=== PATIENT | female | born 1955 | race African-American/Black ===

== ENCOUNTER 2023-09-25 08:56 | Day surgery (SDC) | payer MEDICARE ==
[2023-09-24 13:18] VITALS: BMI 36.5
[2023-09-25] MEDS ORDERED: CEFAZOLIN 2 GM VIAL ONE (10:42)
[2023-09-25] MEDS ORDERED: Bupivacaine PF 0.5% 30 ML VIAL ONE (10:42)
[2023-09-25] MEDS ORDERED: PROPOFOL 20 ML ONE (11:21)
[2023-09-25] MEDS ORDERED: fentaNYL 50 mcg/mL 1 mL Vial ONE ×2 (11:22→12:43)
[2023-09-25] MEDS ORDERED: SUCCINYLCHOLINE/SOD CL,ISO/PF 200 MG/10 ML SYRINGE FS ONE (11:22)
[2023-09-25] MEDS ORDERED: PHENYLEPHRINE-NS 100 MCG/ML 10 ML SYRINGE ONE (12:12)
[2023-09-25] MEDS ORDERED: Lidocaine 2% PF 5 ML VIAL ONE (12:12)
[2023-09-25] MEDS ORDERED: Promethazine HCl 25 MG/ML VIAL ONE (13:51)
== END 2023-09-25 14:35 | disposition home or self-care (01) ==
LOC: CSHSDC 08:56
PROVIDERS: ATTEND Podiatrist Foot & Ankle Surgery
DX: M77.31 Calcaneal spur, right foot (principal); M76.61 Achilles tendinitis, right leg; M89.9 Disorder of bone, unspecified; E78.5 Hyperlipidemia, unspecified; I10 Essential (primary) hypertension; E66.9 Obesity, unspecified; E78.2 Mixed hyperlipidemia; E11.9 Type 2 diabetes mellitus without complications; Z71.89 Other specified counseling; Z79.899 Other long term (current) drug therapy; Z88.5 Allergy status to narcotic agent; Z68.36 Body mass index [BMI] 36.0-36.9, adult; Z79.85 Long-term (current) use of injectable non-insulin antidiabetic drugs
CPT/HCPCS: 28118; 28200; 73620; 93005; C1713; J0665; J2001; J2550; J2704; J3010; 93010

== ENCOUNTER 2025-04-02 14:27 | Outpatient (CLI) | payer OTHER | END 2025-04-02 14:28 | disposition home or self-care (01) | LOC: CSHMAMMO 14:27 | PROVIDERS: ATTEND Family Medicine | DX: Z12.31 Encounter for screening mammogram for malignant neoplasm of breast (principal); Z91.89 Other specified personal risk factors, not elsewhere classified | CPT/HCPCS: 77063; 77067 ==